=== PATIENT | female | born 1990 | race African-American/Black ===

== ENCOUNTER 2017-03-11 01:58 | Emergency (ER) | payer MEDICAID ==
[~2017-03-11] VITALS: Ht 149.9 cm; Wt 47.0 kg
[~2017-03-11 01:58] MED LIST: ALBUTEROL
[2017-03-11] MEDS ORDERED: IPRATROPIUM BROMIDE (0.02%) 0.5MG/2.5ML NEB HHN STA (02:55)
[2017-03-11] MEDS ORDERED: METHYLPREDNISOLONE SOD SUCC 125 MG/2 ML VIAL IV STA (02:55)
[2017-03-11] MEDS ORDERED: MORPHINE SULFATE 4 MG/ML CPJ (NOT FOR IM USE) IV STA (02:55)
[2017-03-11] MEDS ORDERED: SODIUM CHLORIDE 0.9% 500 ML IV ONE (02:55)
[2017-03-11] MEDS ORDERED: ONDANSETRON HCL 4MG/2ML VIAL IV STA (02:55)
[2017-03-11] MEDS ORDERED: ALBUTEROL (0.083%) 2.5MG/3ML NEB HHN STA (02:55)
[2017-03-11 03:16] LABS: BASOPHILS % 0.5 % (0.0-2.0); EOSINOPHILS % 0.1 % (0.0-5.0); HEMATOCRIT. 35.8 % (36.0-48.0); HEMOGLOBIN. 11.8 g/dL (12.0-16.0); MEAN CORPUSCULAR HEMOGLOBIN 26.7 pg (28.0-32.0); MEAN CORPUSCULAR VOLUME 81.1 fL (81.0-99.0); MEAN PLATELET VOLUME 7.7 fl (7.4-10.4); MONOCYTES % 5.1 % (2.0-8.0); NEUTROPHILS % 85.3 % (40.0-76.0); PLATELET 236 x1000/uL (130-400); RED BLOOD CELL COUNT 4.42 mill/uL (4.2-5.4); RED CELL DISTRIBUTION WIDTH 12.7 % (11.6-14.6)
[2017-03-11 03:25] LABS: HCG SCREEN NEGATIVE
[2017-03-11 03:26] LABS: PROTHROMBIN TIME 10.6 sec (9.4-11.6)
[2017-03-11 03:33] LABS: CARBON DIOXIDE 24 mEq/L (21-32); CHLORIDE 105 mEq/L (98-107); TROPONIN I < 0.02 ng/mL (0.00-0.04)
[2017-03-11] MEDS ORDERED: DIPHENHYDRAMINE 25MG CAPSULE PO ONE (04:30)
[2017-03-11] MEDS ORDERED: SODIUM CHLORIDE 0.9% 10ML VIAL ONE (06:00)
[2017-03-11] MEDS ORDERED: IOHEXOL-350 100 ML BOTTLE ONE (06:00)
[2017-03-11] MEDS ORDERED: LEVOFLOXACIN 750MG PREMIX 150 ML IV SCH (06:15)
[2017-03-11 06:57] VITALS: BP 111/68
== END 2017-03-11 07:13 | disposition home or self-care (01) ==
LOC: ER 02:43
DX: J18.9 Pneumonia, unspecified organism (principal); R07.9 Chest pain, unspecified; R06.00 Dyspnea, unspecified; J45.909 Unspecified asthma, uncomplicated
CPT/HCPCS: 36415; 71010; 71275; 80053; 83880; 84484; 84703; 85025; 85610; 93005; 96365; 96375; 99285; A4216; J1956; J2270; J2405; J2930; J7050; Q9967; Z7610; J7030; Q0163

== ENCOUNTER 2018-03-07 20:07 | Emergency (ER) | payer MEDICAID ==
[~2018-03-07] VITALS: Ht 149.9 cm; Wt 52.0 kg
[2018-03-07] MEDS ORDERED: SODIUM CHLORIDE 0.9% 1,000 ML IV ONE (23:02)
[2018-03-07] MEDS ORDERED: ONDANSETRON HCL 4MG/2ML INJ IV STA (23:02)
[2018-03-07] MEDS ORDERED: MORPHINE SULFATE 4 MG/ML CPJ (NOT FOR IM USE) IV STA (23:02)
[2018-03-07] MEDS ORDERED: DIPHENHYDRAMINE 50MG/ML VIAL IV ONE (23:15)
[2018-03-07 23:28] LABS: BASOPHILS % 0.8 % (0.0-2.0); EOSINOPHILS % 0.4 % (0.0-5.0); HEMATOCRIT. 36.6 % (36.0-48.0); HEMOGLOBIN. 12.1 g/dL (12.0-16.0); LYMPHOCYTES % 24.4 % (20.0-50.0); MEAN CORPUSCULAR HEMOGLOBIN 27.1 pg (28.0-32.0); MEAN CORPUSCULAR VOLUME 81.5 fL (81.0-99.0); MONOCYTES % 6.3 % (2.0-8.0); NEUTROPHILS % 68.1 % (40.0-76.0); PLATELET 285 x1000/uL (130-400); RED BLOOD CELL COUNT 4.49 mill/uL (4.2-5.4); RED CELL DISTRIBUTION WIDTH 13.1 % (11.6-14.6)
[2018-03-07 23:31] LABS: CHLORIDE 107 mEq/L (98-107)
[2018-03-08] MEDS ORDERED: METOCLOPRAMIDE HCL 10MG/2ML VIAL IV ONE (01:15)
[2018-03-08] MEDS ORDERED: IOHEXOL-350 100 ML BOTTLE ONE (03:19)
[2018-03-08 05:01] VITALS: BP 107/55
== END 2018-03-08 05:03 | disposition home or self-care (01) ==
LOC: ER 20:07
DX: R51 Headache (principal); R11.2 Nausea with vomiting, unspecified; J45.909 Unspecified asthma, uncomplicated; F12.10 Cannabis abuse, uncomplicated; Z98.890 Other specified postprocedural states; Z88.6 Allergy status to analgesic agent
CPT/HCPCS: 36415; 70450; 70496; 80048; 85025; 96361; 96374; 96375; 99285; J1200; J2270; J2405; J2765; J7030; Q9967; Z7610

== ENCOUNTER 2018-08-08 10:51 | Emergency (ER) | payer MEDICAID ==
[~2018-08-08] VITALS: Ht 149.9 cm; Wt 54.0 kg
[2018-08-08] MEDS ORDERED: SODIUM CHLORIDE 0.9% 1,000 ML IV ONE (12:00)
[2018-08-08] MEDS ORDERED: FAMOTIDINE 20MG/2ML VIAL IV STA (12:00)
[2018-08-08] MEDS ORDERED: ONDANSETRON HCL 4MG/2ML INJ IV STA (12:00)
[2018-08-08] MEDS ORDERED: KETOROLAC 30MG/ML VIAL IV ONE (12:45)
[2018-08-08 13:13] LABS: BASOPHILS % 0.8 % (0.0-2.0); EOSINOPHILS % 0.1 % (0.0-5.0); HEMATOCRIT. 39.6 % (36.0-48.0); HEMOGLOBIN. 12.9 g/dL (12.0-16.0); LYMPHOCYTES % 18.5 % (20.0-50.0); MEAN CORPUSCULAR VOLUME 82.9 fL (81.0-99.0); MEAN PLATELET VOLUME 8.3 fl (7.4-10.4); MONOCYTES % 2.6 % (2.0-8.0); PLATELET 338 x1000/uL (130-400); RED BLOOD CELL COUNT 4.78 mill/uL (4.2-5.4); RED CELL DISTRIBUTION WIDTH 13.2 % (11.6-14.6)
[2018-08-08 13:15] LABS: CLARITY URINE CLEAR (CLEAR); COLOR URINE YELLOW (YELLOW); KETONES URINE 2+ (NEGATIVE); LEUKOCYTE ESTERASE URINE TRACE (NEGATIVE); NITRITE URINE NEGATIVE (NEGATIVE); OCCULT BLOOD URINE NEGATIVE (NEGATIVE); PH URINE >=9.0 (4.5-8.0); PROTEIN URINE TRACE (NEGATIVE); SPECIFIC GRAVITY URINE 1.027 (1.005-1.030); UROBILINOGEN URINE 0.2 E.U./dL (0.2-1.0)
[2018-08-08 13:17] LABS: CHLORIDE 106 mEq/L (98-107)
[2018-08-08 13:18] LABS: PROTHROMBIN TIME 10.3 sec (9.1-11.1)
[2018-08-08 13:19] LABS: HCG SCREEN NEGATIVE
[2018-08-08] MEDS ORDERED: IOHEXOL-300 100 ML BOTTLE ONE (14:14)
[2018-08-08] MEDS ORDERED: CEFTRIAXONE 1 G PREMIX 50 ML IV ONE (14:15)
[2018-08-08 17:25] VITALS: BP 111/58
== END 2018-08-08 17:27 | disposition home or self-care (01) ==
LOC: ER 11:03
DX: R10.9 Unspecified abdominal pain (principal); R19.7 Diarrhea, unspecified; R11.0 Nausea; J02.9 Acute pharyngitis, unspecified; K76.0 Fatty (change of) liver, not elsewhere classified; N39.0 Urinary tract infection, site not specified; J45.909 Unspecified asthma, uncomplicated; Z88.5 Allergy status to narcotic agent
CPT/HCPCS: 36415; 71045; 74177; 80053; 81003; 81025; 83690; 84703; 85025; 85610; 87804; 96361; 96374; 96375; 99284; J1885; J2405; J3490; J7030; Q9967